=== PATIENT | male | born 1990 | race African-American/Black ===

== ENCOUNTER 2019-08-05 18:34 | Emergency (ER) | payer OTHER ==
[~2019-08-05] VITALS: Ht 180.3 cm; Wt 76.8 kg
[2019-08-05] MEDS ORDERED: ACETAMINOPHEN 325 MG TAB PO ONE (19:15)
--- NOTE | 2019-08-05 19:31 | REP ---
Three views left shoulder and five views left ribs/thorax: 08/05/2019. Indication: Left shoulder and rib pain. Comparison: None. Findings: There is no acute fracture, subluxation or dislocation. The lungs are clear. No significant focal soft tissue abnormalities are detected. The cardiac silhouette is unremarkable. There is no pleural effusion or pneumothorax. Impression: No acute fracture or additional acute osseous pathology. Electronically Signed by Chadd Tse DO 08/05/2019 07:22 P
[2019-08-05 19:43] LABS: BASO % 0.5 % (0.0-1.0); EOS # 0.1 10^3/uL (0.0-0.5); EOS % 1.6 % (0.0-3.0); HEMATOCRIT 47.7 % (42.0-52.0); HEMOGLOBIN 14.8 g/dl (13.5-17.5); LYMPH # 1.8 10^3/uL (1.5-5.0); LYMPH % 32.4 % (24.0-44.0); MEAN CORPUSCULAR VOLUME 86.9 fl (80.0-96.0); MONO # 0.4 10^3/uL (0.0-0.8); MONO % 7.2 % (0.0-5.0); NEUTROPHILS # 3.2 10^3/uL (1.5-8.5); NEUTROPHILS % 57.4 % (36.0-66.0); PLATELET COUNT, AUTOMATED 265 10^3/uL (150-450); RED BLOOD COUNT 5.49 10^6/uL (4.30-6.10); WHITE BLOOD COUNT 5.5 10^3/uL (4.0-10.0)
[2019-08-05 20:21] VITALS: BP 114/68
== END 2019-08-05 20:31 | disposition home or self-care (01) ==
LOC: M ED 18:34
DX: S40.012A Contusion of left shoulder, initial encounter (principal); S46.912A Strain of unspecified muscle, fascia and tendon at shoulder and upper arm level, left arm, initial encounter; V47.5XXA Car driver injured in collision with fixed or stationary object in traffic accident, initial encounter; Y92.410 Unspecified street and highway as the place of occurrence of the external cause